=== PATIENT | female | born 1950 | race American Indian/Alaskan Native ===

== ENCOUNTER 2017-11-09 12:32 | Outpatient (CLI) | payer MEDICARE ==
--- NOTE | 2017-11-09 16:56 | XRay Report ---
FINAL REPORT EXAM: XR KNEE 4+V RT HISTORY: RIGHT KNEE PAIN TECHNIQUE: Four views right knee Comparison: None FINDINGS: Normal bony mineralization. Medial joint space narrowing. Mild medial femoral condylar squaring. Moderate suprapatellar bursal effusion. Mild infrapatellar soft tissue prominence. No fracture or dislocation. Patellofemoral joint demonstrates mild incongruity of the patellofemoral joint space. IMPRESSION: Mild medial compartment osteoarthritis. Moderate suprapatellar bursal effusion and mild infrapatellar soft tissue swelling. Patellofemoral incongruity suggestive of mild arthritis. No history of trauma was provided. Bursal effusion could be related to trauma as well as degenerative arthritis per
== END 2017-11-09 12:33 | disposition home or self-care (01) ==
LOC: SPVIMAG 12:32
PROVIDERS: ATTEND Orthopaedic Surgery
DX: M17.11 Unilateral primary osteoarthritis, right knee (principal)